=== PATIENT | female | born 2005 | race African-American/Black ===

== ENCOUNTER 2025-03-26 09:31 | Emergency (ER) | payer MEDICAID ==
[~2025-03-26] VITALS: Ht 162.6 cm; Wt 57.0 kg
[2025-03-26 09:36] VITALS: O2SAT 100
[2025-03-26 10:00] LABS: CLARITY URINE CLOUDY (CLEAR); COLOR URINE YELLOW (YELLOW); GLUCOSE URINE NEGATIVE (NEGATIVE); KETONES URINE NEGATIVE (NEGATIVE); LEUKOCYTE ESTERASE URINE 3+ (NEGATIVE); NITRITE URINE NEGATIVE (NEGATIVE); OCCULT BLOOD URINE NEGATIVE (NEGATIVE); PH URINE 7.0 (4.5-8.0); PROTEIN URINE NEGATIVE (NEGATIVE); SPECIFIC GRAVITY URINE 1.016 (1.005-1.030); UROBILINOGEN URINE 0.2 E.U./dL (0.2-1.0)
[2025-03-26] MEDS ORDERED: CEPH250C2 MT (10:06)
[2025-03-26 10:20] LABS: SQUAMOUS EPITHELIAL CELL URINE 3+ /lpf (RARE/1+)
[2025-03-26 10:22] LABS: RBC URINE 0-2 /hpf (0-2)
[2025-03-26 10:23] LABS: BACTERIA URINE 2+
[2025-03-26 10:25] VITALS: BP 115/84; PULSE 74; RESP 16; TEMP 36.8; O2SAT 100
[2025-03-27 19:06] LABS: CHLAMYDIA TRACHOMATIS NAA Positive (Negative); NEISSERIA GONORRHOEAE NAA Negative (Negative)
[2025-03-29] MEDS ORDERED: DOXY100T2 MT (17:34)
== END 2025-03-26 10:30 | disposition home or self-care (01) ==
LOC: ER 09:31
DX: N39.0 Urinary tract infection, site not specified (principal); Z11.3 Encounter for screening for infections with a predominantly sexual mode of transmission; Z79.899 Other long term (current) drug therapy
CPT/HCPCS: 36415; 81003; 81025; 86592; 87491; 87591; 99283

== ENCOUNTER 2025-05-03 23:52 | Emergency (ER) | payer MEDICAID ==
[~2025-05-03] VITALS: Ht 162.6 cm; Wt 54.7 kg
[~2025-05-03 23:52] MED LIST: CEPH250C2 MT; DOXY100T2 MT
[2025-05-04] VITALS: O2SAT 99
[2025-05-04] MEDS ORDERED: DOXY100C5 MT (01:20)
[2025-05-04 01:40] VITALS: BP 113/83; PULSE 71; RESP 18; TEMP 36.8; O2SAT 99
[2025-05-04] MEDS: CEFTRIAXONE SODIUM 500MG VIAL IM ONE (01:50)
[2025-05-05 15:10] LABS: CHLAMYDIA TRACHOMATIS NAA Negative (Negative); NEISSERIA GONORRHOEAE NAA Negative (Negative)
== END 2025-05-04 01:50 | disposition home or self-care (01) ==
LOC: ER 23:52
DX: Z11.3 Encounter for screening for infections with a predominantly sexual mode of transmission (principal); Z20.2 Contact with and (suspected) exposure to infections with a predominantly sexual mode of transmission
CPT/HCPCS: 87491; 87591; 99283

== ENCOUNTER 2025-07-19 11:39 | Emergency (ER) | payer MEDICAID ==
[~2025-07-19] VITALS: Ht 162.6 cm; Wt 59.0 kg
[~2025-07-19 11:39] MED LIST changes: +DOXY100C5 MT
[2025-07-19 12:01] VITALS: O2SAT 100
[2025-07-19] MEDS: ACETAMINOPHEN 500MG TABLET PO ONE (13:15)
[2025-07-19] MEDS ORDERED: KETOROLAC 15MG/ML VIAL IV ONE (13:15)
[2025-07-19] MEDS: IBUPROFEN 600MG TABLET PO ONE (13:30)
[2025-07-19 13:51] LABS: CLARITY URINE CLEAR (CLEAR); COLOR URINE YELLOW (YELLOW); GLUCOSE URINE NEGATIVE (NEGATIVE); KETONES URINE 2+ (NEGATIVE); LEUKOCYTE ESTERASE URINE NEGATIVE (NEGATIVE); NITRITE URINE NEGATIVE (NEGATIVE); OCCULT BLOOD URINE 3+ (NEGATIVE); PH URINE 6.0 (4.5-8.0); PROTEIN URINE 1+ (NEGATIVE); SPECIFIC GRAVITY URINE 1.027 (1.005-1.030); UROBILINOGEN URINE 1.0 E.U./dL (0.2-1.0)
[2025-07-19 13:52] LABS: *AMPHETAMINES SCREEN URINE NEGATIVE (NEGATIVE)
[2025-07-19 13:53] LABS: *BARBITURATES SCREEN URINE NEGATIVE (NEGATIVE); *BENZODIAZEPINES SCREEN URINE NEGATIVE (NEGATIVE); *COCAINE SCREEN URINE NEGATIVE (NEGATIVE); CANNABINOID URINE SCREEN PRESUMPTIVE POSITIVE (NEGATIVE); ECSTASY MDMA SCREEN URINE NEGATIVE (NEGATIVE); METHADONE URINE SCREEN NEGATIVE (NEGATIVE); OPIATES URINE SCREEN NEGATIVE (NEGATIVE); PHENCYCLIDINE URINE SCREEN NEGATIVE (NEGATIVE)
[2025-07-19 14:03] LABS: BACTERIA URINE TRACE; MUCUS URINE 1+ /lpf (< = 2+); RBC URINE 15-25 /hpf (0-2); SQUAMOUS EPITHELIAL CELL URINE 2+ /lpf (RARE/1+); WBC URINE 0-2 /hpf (0-2); YEAST URINE NONE SEEN
[2025-07-19 14:32] LABS: BASOPHILS % 0.2 % (0.0-2.0); EOSINOPHILS % 0.5 % (0.0-5.0); HEMATOCRIT. 35.8 % (36.0-48.0); HEMOGLOBIN. 11.6 g/dL (12.0-16.0); LYMPHOCYTES % 22.0 % (20.0-50.0); MEAN PLATELET VOLUME 7.7 fl (7.4-10.4); MONOCYTES % 5.2 % (2.0-8.0); NEUTROPHILS % 72.1 % (40.0-76.0); PLATELET 330 x1000/uL (130-400); RED BLOOD CELL COUNT 4.29 mill/uL (4.2-5.4); RED CELL DISTRIBUTION WIDTH 13.7 % (11.6-14.6)
[2025-07-19 14:47] LABS: CREATININE 0.9 mg/dL (0.6-1.0); UREA NITROGEN BLOOD 12 mg/dL (9-23)
[2025-07-19 14:49] LABS: ASPARTATE AMINOTRANSFERASE 17 IU/L (<34); BILIRUBIN DIRECT 0.1 mg/dL (<=3.0); BILIRUBIN TOTAL 0.5 mg/dL (0.1-1.0); PROTEIN TOTAL 7.1 g/dL (6.0-8.3)
[2025-07-19 14:53] LABS: HCG SCREEN NEGATIVE
[2025-07-19 15:23] VITALS: BP 111/83; PULSE 81; RESP 18; TEMP 36.6; O2SAT 98
[2025-07-21 06:11] LABS: HSV TYPE 2 SPECIFIC AB IGG Non Reactive (Non Reactive)
[2025-07-21 15:11] LABS: CHLAMYDIA TRACHOMATIS NAA Negative (Negative); NEISSERIA GONORRHOEAE NAA Negative (Negative)
== END 2025-07-19 16:15 | disposition home or self-care (01) ==
LOC: ER 11:39
DX: Z04.89 Encounter for examination and observation for other specified reasons (principal)
CPT/HCPCS: 36415; 70486; 71045; 80048; 80076; 80305; 80307; 80320; 80329; 81003; 81025; 84703; 85025; 86695; 86696; 87491; 87591; 99284; G0480